=== PATIENT | male | born 1970 | race American Indian/Alaskan Native ===

== ENCOUNTER 2022-06-04 17:30 | Emergency (ER) | payer SELFPAY ==
--- NOTE | 2022-06-04 19:33 | XRay Report ---
LEFT FOOT 3 VIEW(S) INDICATION / CLINICAL INFORMATION: injury, pain with laceration. COMPARISON: None available. FINDINGS: BONES / JOINT(S): No acute fracture or subluxation. No significant arthritis. SOFT TISSUES: Soft tissue laceration of the medial hindfoot. No radiopaque foreign body. ADDITIONAL FINDINGS: None. Signer Name: Akhil Baker MD Signed: 06/04/2022 7:29 PM Workstation Name: [id number]
[2022-06-04] MEDS ORDERED: ACETAMINOPHEN 500 MG TAB PO ONE (22:48)
[2022-06-04] MEDS ORDERED: SULFAMETHOXAZOLE/TRIMETHOPRIM 800/160MG DS TAB PO ONE (22:48)
[2022-06-04] MEDS ORDERED: TETANUS,DIPH,PERTUSS(ACELL) VACCINE 0.5 ML SYRINGE IM ONE (22:48)
[2022-06-04] MEDS ORDERED: IBUPROFEN 600 MG TAB PO ONE (22:48)
--- NOTE | 2022-06-04 23:55 | Emergency Department Report ---
ED General Adult HPI - General Chief complaint: Wound/Laceration Stated complaint: CUT ON FOOT Source: patient Mode of arrival: Ambulatory Limitations: No Limitations - History of Present Illness Initial comments: Patient is a 51-year-old male with no past medical history who presents to the ED with complaint of acute onset persistent left foot pain due to multiple open laceration wounds that he sustained 3 weeks ago at work but never went to the hospital to be evaluated for. Patient states that he has been cleaning the wounds daily with peroxide solutions and applying Neosporin ointment. Patient states that in the last 4 days, the open wounds have become more ulcerated with purulent discharge and swelling of the left foot. Patient also states that the pain is especially worse with movement. Patient denies numbness and tingling or weakness of lower extremities bilaterally, fever, chills, nausea and vomiting, chest pain, shortness of breath, fall, low back pain, heavy lifting and abdominal pain. MD Complaint: left foot open wound -: Gradual, week(s) (3) Location: lower extremity (left foot puncture wound) Radiation: non-radiation Severity scale (0 -10): 8 Quality: aching, sharp Consistency: constant Improves with: none Worsens with: movement Associated Symptoms: denies other symptoms, other (Painful multiple open wounds on dorsal left foot with a pain). denies: chest pain, cough, diaphoresis, fever/chills, malaise, rash, seizure, syncope, weakness Treatments Prior to Arrival: none - Related Data Previous Rx's Medication Instructions Recorded Last Taken Type Acetaminophen/Codeine [Tylenol 1 tab PO Q6H PRN #10 tab 06/05/22 Unknown Rx /Codeine # 3 tab] Ibuprofen [Motrin] 800 mg PO Q8HR PRN #30 tablet 06/05/22 Unknown Rx Mupirocin [Bactroban 2% OINT] 1 applic TP TID #1 tube 06/05/22 Unknown Rx Sulfamethoxazole/Trimethoprim 1 each PO Q12H #20 tab 06/05/22 Unknown Rx [Bactrim DS TAB] Allergies Allergy/AdvReac Type Severity Reaction Status Date / Time No Known Allergies Allergy Unverified 06/04/22 18:39 ED Review of Systems ROS: Stated complaint: CUT ON FOOT Other details as noted in HPI Constitutional: denies: chills, fever Eyes: denies: eye pain, eye discharge, vision change ENT: denies: ear pain, throat pain Respiratory: denies: cough, shortness of breath, wheezing Cardiovascular: denies: chest pain, palpitations Endocrine: no symptoms reported Gastrointestinal: denies: abdominal pain, nausea, vomiting, diarrhea Genitourinary: denies: urgency, dysuria Musculoskeletal: other (Left foot pain due to her pain multiple laceration wounds). denies: back pain, joint swelling, arthralgia Skin: other (Open multiple laceration who wounds). denies: rash, lesions Neurological: denies: headache, weakness, paresthesias Psychiatric: denies: anxiety, depression Hematological/Lymphatic: denies: easy bleeding, easy bruising ED Past Medical Hx - Past Medical History Previous Medical History?: No - Surgical History Past Surgical History?: No - Medications Home Medications: Home Medications Medication Instructions Recorded Confirmed Last Taken Type Acetaminophen/Codeine [Tylenol 1 tab PO Q6H PRN #10 tab 06/05/22 Unknown Rx /Codeine # 3 tab] Ibuprofen [Motrin] 800 mg PO Q8HR PRN #30 tablet 06/05/22 Unknown Rx Mupirocin [Bactroban 2% OINT] 1 applic TP TID #1 tube 06/05/22 Unknown Rx Sulfamethoxazole/Trimethoprim 1 each PO Q12H #20 tab 06/05/22 Unknown Rx [Bactrim DS TAB] ED Physical Exam - General Limitations: No Limitations General appearance: alert, in no apparent distress - Head Head exam: Present: atraumatic, normocephalic, normal inspection - Eye Eye exam: Present: normal appearance, PERRL, EOMI Pupils: Present: normal accommodation - ENT ENT exam: Present: normal exam, normal orophraynx, mucous membranes moist, normal external ear exam - Neck Neck exam: Present: normal inspection, full ROM. Absent: tenderness - Respiratory Respiratory exam: Present: normal lung sounds bilaterally. Absent: respiratory distress, wheezes, rales, rhonchi, chest wall tenderness, accessory muscle use, decreased breath sounds, prolonged expiratory - Cardiovascular Cardiovascular Exam: Present: regular rate, normal rhythm, normal heart sounds. Absent: systolic murmur, diastolic murmur, rubs, gallop - GI/Abdominal GI/Abdominal exam: Present: soft, normal bowel sounds. Absent: tenderness, guarding, rebound, hyperactive bowel sounds, hypoactive bowel sounds, organomegaly, bruit - Extremities Exam Extremities exam: Present: normal inspection, full ROM, tenderness (Palpable left foot tenderness due to open ulcerated wounds with localized tenderness and purulent discharge), normal capillary refill. Absent: pedal edema, joint swelling, calf tenderness - Back Exam Back exam: Present: normal inspection - Neurological Exam Neurological exam: Present: alert, oriented X3 - Psychiatric Psychiatric exam: Present: normal affect, normal mood - Skin Skin exam: Present: warm, dry, intact, normal color. Absent: rash ED Course Vital Signs 06/04/22 18:34 Temperature 98.6 F Pulse Rate 64 Respiratory 18 Rate Blood Pressure 134/72 [Left] O2 Sat by Pulse 98 Oximetry ED Medical Decision Making - Medical Decision Making This is a 51-year-old male with no past medical history who presents to the ED with complaint of acute onset persistent left foot pain due to multiple open laceration wounds that he sustained 3 weeks ago at work but never went to the hospital to be evaluated for. Patient states that he has been cleaning the wounds daily with peroxide solutions and applying Neosporin ointment. Patient states that in the last 4 days, the open wounds have become more ulcerated with purulent discharge and swelling of the left foot. Patient also states that the pain is especially worse with movement. In the ED, patient is alert and oriented x3 and is not in any distress. Patient was treated for pain in the ED and also received booster tetanus vaccination. The wound was cleaned and d ressed appropriately and the patient will discharge home on pain medications and antibiotics and advised to follow-up with his primary care physician in 7 to 10 days for reevaluation. Patient was advised to return to the ED immediately if symptoms get worse. - Differential Diagnosis Puncture wound; foot laceration; cellulitis Critical care attestation.: If time is entered above; I have spent that time in minutes in the direct care of this critically ill patient, excluding procedure time. ED Disposition Clinical Impression: Cellulitis of left foot Puncture wound of left foot excluding toes with infection Qualifiers: Encounter type: initial encounter Qualified Code(s): S91.332A - Puncture wound without foreign body, left foot, initial encounter; L08.9 - Local infection of the skin and subcutaneous tissue, unspecified Disposition: 01 HOME / SELF CARE / HOMELESS Is pt being admited?: No Does the pt Need Aspirin: No Condition: Stable Instructions: Cellulitis, Adult, [id number], Puncture Wound, [id number] Additional Instructions: Take medication with food, drink plenty of fluids, follow-up with your primary care physician in 7 to 10 days for reevaluation. Return to the ED immediately if symptoms get worse. Prescriptions: Sulfamethoxazole/Trimethoprim [Bactrim DS TAB] 1 each PO Q12H #20 tab Mupirocin [Bactroban 2% OINT] 1 applic TP TID #1 tube Ibuprofen [Motrin] 800 mg PO Q8HR PRN #30 tablet PRN Reason: Pain , Severe (7-10) Acetaminophen/Codeine [Tylenol /Codeine # 3 tab] 1 tab PO Q6H PRN #10 tab PRN Reason: Pain , Severe (7-10) Referrals: JAIRON JAIMES MD [Primary Care Provider] - 7-10 days Time of Disposition: 00:00 Print Language: INDONESIAN
[2022-06-05 00:36] VITALS: BP 123/77
== END 2022-06-05 01:08 | disposition home or self-care (01) ==
LOC: ED 17:30
DX: L03.116 Cellulitis of left lower limb (principal); S91.332A Puncture wound without foreign body, left foot, initial encounter; X58.XXXA Exposure to other specified factors, initial encounter; Y93.89 Activity, other specified; Y92.89 Other specified places as the place of occurrence of the external cause; Y99.8 Other external cause status
CPT/HCPCS: 90471; 90715; 99283